=== PATIENT | male | born 1985 | race Caucasian/White ===

== ENCOUNTER 2020-02-20 12:30 | Emergency (ER) | payer SELFPAY ==
[~2020-02-20] VITALS: Ht 170.2 cm; Wt 77.1 kg
--- NOTE | 2020-02-20 12:30 | NUR ---
Pt to ER bed 1, walked in to ER with c/o laceration to left upper lip. Reports he was cut with a blade while at work approx 25 min ago. V/S stable, pt is afebrile. Denies any other trauma at this time. Currently resting in bed, will continue to monitor.
--- NOTE | 2020-02-20 12:35 | NUR ---
ER Dr. Chandler at bedside examining patient.
[2020-02-20] MEDS ORDERED: MORPHINE 2 MG/ML INJ. SYRINGE IM ONE (12:45)
[2020-02-20] MEDS ORDERED: LIDOCAINE 2%, 20 ML MDV INJ ONE (12:45)
[2020-02-20] MEDS ORDERED: DIPH-TET-PERTUS Vaccine 0.5 ML VIAL (ADACEL) I.M. ONE (12:45)
--- NOTE | 2020-02-20 12:50 | NUR ---
Wound cleansed and irrigated with NS, pt tolerated well.
--- NOTE | 2020-02-20 13:00 | NUR ---
Patient transported to radiology via gurney, accompanied by Staff.
[2020-02-20 13:04] VITALS: BP_SYST 142
--- NOTE | 2020-02-20 13:20 | NUR ---
Patient has an approx 6cm laceration to left upper lip. Dr. Chandler applied sutures using sterile technique. Edges well approximated. Site cleansed with NS and betadine. Site left open to air. No bleeding noted. Pt tolerated well.
[2020-02-20] MEDS ORDERED: BACITRACIN 1 GM OINT TP ONE (13:45)
[2020-02-20 14:06] VITALS: BP_SYST 136
--- NOTE | 2020-02-20 14:07 | NUR ---
Patient given written and verbal discharge instructions and verbalizes understanding. ER MD discussed with patient the results and treatment provided. Patient in stable condition. ID arm band removed. IV catheter removed intact and dressing applied, no active bleeding. Rx of ABX given. Patient educated on pain management and to follow up with PMD. Pain Scale 2/10 Opportunity for questions provided and answered. Medication side effect fact sheet provided.
== END 2020-02-20 14:07 | disposition home or self-care (01) ==
LOC: SED 12:30
DX: S01.21XA Laceration without foreign body of nose, initial encounter (principal); J33.9 Nasal polyp, unspecified; R03.0 Elevated blood-pressure reading, without diagnosis of hypertension; W22.8XXA Striking against or struck by other objects, initial encounter; Y93.89 Activity, other specified; Y92.89 Other specified places as the place of occurrence of the external cause; Y99.8 Other external cause status
CPT/HCPCS: 12013; 70486; 90471; 90715; 96372; 99284; J2001; J2270

== ENCOUNTER 2020-12-30 17:30 | Emergency (ER) | payer SELFPAY ==
[~2020-12-30] VITALS: Ht 165.1 cm; Wt 72.6 kg
--- NOTE | 2020-12-30 17:30 | NUR ---
Patient to H1 to gown for evaluation. Side rails up.
[2020-12-30 17:33] VITALS: BP_SYST 135
--- NOTE | 2020-12-30 17:36 | NUR ---
PT [facility] FOR AN OK TO BOOM AND BA
--- NOTE | 2020-12-30 18:10 | NUR ---
ER at bedside examining patient.
--- NOTE | 2020-12-30 18:13 | NUR ---
Written and verbal consent obtained from patient for blood alcohol, name and verified by patient. Disinfected patient's skin with that did not contain alcohol or other volatile organic compound. Collected the blood from the subject named by venipuncture, in the presence of Officer JESI. Used a sterile, dry hypodermic needle and dry vacuum blood collection. Two dry vacuum blood collection was supplied by the officer named above. Withdrew a specimen of blood from of the subject named above. Inverted both blood tubes several times to ensure that the preservative and anticoagulant were thoroughly mixed in the blood specimen. I initialed both blood tube labels for identification. The labeled blood tubes were handed directly to the Officer named above. The blood tubes stopper remained in place while I had possession of the blood tubes. The Officer placed tubes into envelope and sealed it in my presence. Envelope initialed by myself and Officer named above. Patient tolerated well, bandage applied, and bleeding controlled.
[2020-12-30 18:22] VITALS: BP_SYST 135
--- NOTE | 2020-12-30 18:22 | NUR ---
Patient given written and verbal discharge instructions and verbalizes understanding. ER MD discussed with patient the results and treatment provided. Patient in stable condition. ID arm band removed. Patient educated on pain management and to follow up with PMD. Pain Scale 0/10. Opportunity for questions provided and answered. Medication side effect fact sheet provided. PT RELEASED TO THE CUSTODY OF OFFICER JESI
== END 2020-12-30 18:22 ==
LOC: SED 17:30
DX: S00.83XA Contusion of other part of head, initial encounter (principal); Y35.833A Legal intervention involving a conducted energy device, suspect injured, initial encounter; Y93.89 Activity, other specified; Y92.89 Other specified places as the place of occurrence of the external cause; Y99.8 Other external cause status
CPT/HCPCS: 99283